=== PATIENT | male | born 1975 | race Caucasian/White ===

== ENCOUNTER 2021-10-13 00:04 | Day surgery (SDC) | payer MEDICARE, SELFPAY ==
[2021-10-06 09:48] VITALS: BMI 31.6
[2021-10-13 06:19] VITALS: BP 107/68; PULSE 128; RESP 18; TEMP 36.8; O2SAT 99
[2021-10-13] MEDS: LACTATED RINGERS 1,000 ML 150 ML IV CONT (06:21)
--- NOTE | 2021-10-13 06:49 | P.PNAN_ITS ---
Anes - Initial Pre Proc Eval Procedure: Operation Date: 10/13/21 07:30 Proposed Procedures p Screening Colonoscopy - Davie Mcgowan MD Date/Time: 10/13/21 06:49 Surgeon: Davie Mcgowan MD Pre Op Diagnosis: neoplasm screening Patient Data Age: 46 Gender: M Height: 1.68 m Weight: 96.9 kg Last Vital Signs Temp 36.8 C 10/13/21 06:19 Pulse 128 H 10/13/21 06:19 Resp 18 10/13/21 06:19 BP 107/68 10/13/21 06:19 Pulse Ox 99 10/13/21 06:19 Allergies Allergy/AdvReac Type Severity Reaction Status Date / Time No Known Allergies Allergy Verified 10/13/21 06:16 Home Medications Medication Instructions Recorded Confirmed Type lisinopril 10 mg tablet 10 mg PO DAILY #90 tablet 07/14/21 10/13/21 Rx rosuvastatin 20 mg tablet 20 mg PO DAILY #90 tablet 07/14/21 10/13/21 Rx sertraline 25 mg tablet 25 mg PO DAILY #30 tablet 10/01/21 10/13/21 Rx icosapent ethyl [Vascepa] 2,000 g PO BID 10/06/21 10/13/21 History Patient hx anesthesia problems: none Family hx anesthesia problems: none Results Review: All pre-operative results and documents have been reviewed as part of the pre-operative evaluation. [facility] Past Medical History Medical History (Updated 10/13/21 @ 06:55 by Zhao Trujillo DO) Essential (primary) hypertension Mixed hyperlipidemia Family History Family History Father Patient's father is Acute myocardial infarction Other Family history of cardiovascular disease Social History Social History Smoking status: Never smoker Second hand tobacco smoke exposure: Yes Alcohol intake: current Alcohol use details: once in a while Substance use: never Substance use type: does not use Living arrangements: with family Spiritual care concerns: No Anes - Eval Final PreProcedure Day of Procedure 10/13/21 06:49 Patient weight: obese Heart: regular rate and rhythm Lungs: clear to auscultation and normal air movement Airway: Mallampati scale class II Neurological: alert and oriented Last oral intake: >/= 8 hours ASA classification: III Emergent: no Anesthetic plan: proceed Anesthesia type and monitoring: general GIVS and standard monitoring Results Review: All pre-operative results and documents have been reviewed as part of the pre-operative evaluation. Informed Consent: The patient's anesthetic plan and its attendant risks and benefits were discussed with the patient/family/POA. Questions were solicited and answers provided to the satisfaction of the patient/family/POA.
--- NOTE | 2021-10-13 07:34 | PM.HPGS ---
History of Present Illness History of Present Illness Consent: Risks, benefits, and alternatives have been discussed and questions answered. Patient agrees to proceed with procedure. Chief complaint: neoplasm screening Narrative: Miguel Robledo Jr. is a 46 year old male here for first screening colonoscopy Review of Systems Constitutional: Constitutional: Denies headache(s) and Denies weakness Eyes: Eyes: Denies blurry vision ENT: Reports Normal hearing present, Denies headache(s) and Denies neck pain Cardiovascular: Cardiovascular: Denies chest pain and Denies dyspnea Respiratory: Respiratory: Denies dyspnea Gastrointestinal: Gastrointestinal: Reports no additional gastrointestinal complaints Genitourinary: Genitourinary: Denies dysuria Musculoskeletal: Musculoskeletal: Denies neck pain Integumentary/Breasts: Skin/Breast: Denies dry skin Neurologic: Reports Normal hearing present, Denies headache(s) and Denies weakness Psychiatric: Psychiatric: Denies anxiety Endocrine: Endocrine: Denies change in body appearance Hematologic/Lymphatic: Hematologic/Lymphatic: Denies easy bleeding Allergic/Immunologic: Allergic/Immunologic: Denies urticaria PMFSH Past Medical History Medical History (Updated 10/13/21 @ 06:55 by Zhao Trujillo DO) Essential (primary) hypertension Mixed hyperlipidemia Family History Family History Father Patient's father is Acute myocardial infarction Other Family history of cardiovascular disease Social History Social History Smoking status: Never smoker Second hand tobacco smoke exposure: Yes Alcohol intake: current Alcohol use details: once in a while Substance use: never Substance use type: does not use Living arrangements: with family Spiritual care concerns: No Meds Home Medications and Allergies Home Medications Medication Instructions Recorded Confirmed Type lisinopril 10 mg tablet 10 mg PO DAILY #90 tablet 07/14/21 10/13/21 Rx rosuvastatin 20 mg tablet 20 mg PO DAILY #90 tablet 07/14/21 10/13/21 Rx sertraline 25 mg tablet 25 mg PO DAILY #30 tablet 10/01/21 10/13/21 Rx icosapent ethyl [Vascepa] 2,000 g PO BID 10/06/21 10/13/21 History Allergies Allergy/AdvReac Type Severity Reaction Status Date / Time No Known Allergies Allergy Verified 10/13/21 06:16 Vital Signs Vital Signs - 24 hr 10/13/21 06:19 Temperature 98.3 F Pulse Rate 128 H Respiratory Rate 18 Blood Pressure 107/68 Pulse Oximetry 99 Exam Const: General: comfortable and no acute distress HENMT: General nose exam: Normal nares present Eyes: General: appearance normal, both eyes and all related structures Neck: Neck: no JVD Resp: Auscultation: clear to auscultation bilaterally Cardio: Rate: regular rate Rhythm: regular rhythm GI: Inspection: non-distended GI Palp: Yes Soft to palpation Skin: General skin exam: normal color Neuro: General: gait normal Speech: normal speech Extrem: General: normal to inspection Psych: Mental Status: mental status grossly normal Assessment and Plan Assessment and plan (1) Encounter for screening colonoscopy: Code(s): Z12.11 - Encounter for screening for malignant neoplasm of colon Status: Acute Assessment and Plan: colonoscopy
[2021-10-13 07:52] VITALS: BP 103/73; PULSE 98; RESP 22; O2SAT 95
[2021-10-13 08:02] VITALS: BP 103/67; PULSE 74; RESP 22; O2SAT 94
[2021-10-13 08:12] VITALS: BP 98/60; PULSE 58; RESP 18; O2SAT 97
== END 2021-10-13 08:28 | disposition home or self-care (01) ==
PROVIDERS: PCP Internal Medicine; Visit Provider Internal Medicine Gastroenterology
PROC: 0DJD8ZZ Inspection of Lower Intestinal Tract, Via Natural or Artificial Opening Endoscopic (ICD-10-PCS; CPT 45378; principal; 2021-10-13 07:30)
DX: Z12.11 Encounter for screening for malignant neoplasm of colon (principal); D12.0 Benign neoplasm of cecum; D12.3 Benign neoplasm of transverse colon; K57.30 Diverticulosis of large intestine without perforation or abscess without bleeding; K63.5 Polyp of colon; K64.8 Other hemorrhoids; I10 Essential (primary) hypertension; E78.2 Mixed hyperlipidemia; E66.9 Obesity, unspecified; Z68.34 Body mass index [BMI] 34.0-34.9, adult
CPT/HCPCS: 45380; 45385; 88305; J2704; J7120

== ENCOUNTER 2023-02-15 08:50 | Outpatient (CLI) | payer MEDICARE, SELFPAY ==
[2023-02-15 10:12] LABS: Hematocrit 41.3 % (42.0-52.0); Hemoglobin 13.7 g/dL (14.0-18.0); Mean Corpuscular HGB Conc 33.2 g/dl (32-36); Mean Corpuscular Hemoglobin 29.3 pg (26-34); Mean Corpuscular Volume 88.2 fl (80-100); Mean Platelet Volume 10.8 fl (7.4-10.4); Platelet Count Result 228 k/mm3 (150-375); Red Blood Count 4.68 M/mm3 (4.6-6.20); Red Cell Distribution Width 13.5 % (11.5-14.5); White Blood Count 8.7 K/mm3 (4.5-10.0)
[2023-02-15 10:27] LABS: Alanine Aminotransferase 77 U/L (6-50); Albumin Level 4.2 g/dL (3.5-5.1); Alkaline Phosphatase 69 U/L (38-126); Aspartate Amino Transferase 74 U/L (17-59); Bilirubin,Total 0.5 mg/dL (0.2-1.3)
== END 2023-02-15 08:51 | disposition home or self-care (01) ==
PROVIDERS: PCP Family Medicine; Visit Provider Family Medicine
DX: R73.01 Impaired fasting glucose (principal); R63.4 Abnormal weight loss; I10 Essential (primary) hypertension; E66.9 Obesity, unspecified; E55.9 Vitamin D deficiency, unspecified; E78.2 Mixed hyperlipidemia; Z12.11 Encounter for screening for malignant neoplasm of colon
CPT/HCPCS: 36415; 80076; 85027

== ENCOUNTER 2023-02-18 08:36 | Outpatient (CLI) | payer MEDICARE, SELFPAY ==
[2023-02-18 10:49] LABS: Hepatitis B Surface Antigen Negative (Negative)
[2023-02-18 10:55] LABS: HAV RESULT Negative (Negative); Hepatitis B Core IgM Result Negative (Negative)
[2023-02-18 11:07] LABS: Hepatitis C Virus Antibody Negative (Negative)
== END 2023-02-18 08:37 | disposition home or self-care (01) ==
PROVIDERS: PCP Family Medicine; Visit Provider Family Medicine
DX: R94.5 Abnormal results of liver function studies (principal)
CPT/HCPCS: 36415; 80074

== ENCOUNTER 2023-03-22 09:16 | Outpatient (CLI) | payer MEDICARE, SELFPAY ==
--- NOTE | ~2023-03-22 | US_ITS ---
Limited Abdominal Sonogram: Real-time sonographic imaging of the right upper quadrant was performed. Clinical History: Abnormal serum enzymes Findings: The liver appears echogenic, with no evidence of mass lesion or bile duct dilatation. Main portal vein demonstrates normal direction of flow. The gallbladder is well distended, and appears no rmal with no evidence of gallstone or wall thickening. The common bile duct measures 4 mm. The visua lized pancreas, aorta, and IVC are unremarkable. Impression: Diffuse fatty infiltration of the liver. Reviewed, dictated and finalized at location M. Impression: Diffuse fatty infiltration of the liver.
== END 2023-03-22 09:17 | disposition home or self-care (01) ==
PROVIDERS: PCP Family Medicine; Visit Provider Family Medicine
DX: R74.8 Abnormal levels of other serum enzymes (principal); K76.0 Fatty (change of) liver, not elsewhere classified
CPT/HCPCS: 76705

== ENCOUNTER 2023-08-17 14:27 | Outpatient (CLI) | payer MEDICARE, SELFPAY ==
[2023-08-17 14:52] LABS: Hematocrit 43.5 % (42.0-52.0); Hemoglobin 14.3 g/dL (14.0-18.0); Mean Corpuscular HGB Conc 32.9 g/dl (32-36); Mean Corpuscular Hemoglobin 29.1 pg (26-34); Mean Corpuscular Volume 88.6 fl (80-100); Mean Platelet Volume 10.4 fl (7.4-10.4); Platelet Count Result 253 k/mm3 (150-375); Red Blood Count 4.91 M/mm3 (4.6-6.20); Red Cell Distribution Width 14.2 % (11.5-14.5); White Blood Count 10.6 K/mm3 (4.5-10.0)
[2023-08-17 15:02] LABS: Alanine Aminotransferase 79 U/L (6-50); Albumin Level 4.8 g/dL (3.5-5.1); Alkaline Phosphatase 84 U/L (38-126); Anion Gap 9 mmol/L (8-16); Aspartate Amino Transferase 71 U/L (17-59); Bilirubin,Total 0.8 mg/dL (0.2-1.3); Blood Urea Nitrogen 17 mg/dL (9-20); Calcium 9.5 mg/dL (8.4-10.2); Carbon Dioxide 27 mmol/L (22-30); Chloride 105 mmol/L (98-107); Estimated Glomerular Filt Rate > 60; Glucose 94 mg/dL (65-110); Potassium 4.4 mmol/L (3.4-5.0); Sodium 141 mmol/L (137-145)
[2023-08-17 16:18] LABS: Vitamin D 25 Hydroxy 25.8 ng/mL
[2023-08-17 17:32] LABS: Hemoglobin A1C 5.6 % (<5.7)
== END 2023-08-17 14:28 | disposition home or self-care (01) ==
LOC: ANHLAB 14:33
PROVIDERS: PCP Family Medicine; Visit Provider Family Medicine
DX: D64.9 Anemia, unspecified (principal); R74.8 Abnormal levels of other serum enzymes; R73.01 Impaired fasting glucose; E66.9 Obesity, unspecified; E55.9 Vitamin D deficiency, unspecified; I10 Essential (primary) hypertension
CPT/HCPCS: 36415; 80053; 82306; 83036; 85027

== ENCOUNTER 2024-02-22 09:50 | Outpatient (CLI) | payer MEDICARE, SELFPAY ==
[2024-02-22 10:17] LABS: Hematocrit 41.5 % (42.0-52.0); Hemoglobin 13.7 g/dL (14.0-18.0); Mean Corpuscular Hemoglobin 29.5 pg (26-34); Mean Corpuscular Volume 89.4 fl (80-100); Mean Platelet Volume 10.4 fl (7.4-10.4); Platelet Count Result 234 k/mm3 (150-375); Red Blood Count 4.64 M/mm3 (4.6-6.20); Red Cell Distribution Width 13.7 % (11.5-14.5)
[2024-02-22 10:27] LABS: Alanine Aminotransferase 61 U/L (6-50); Albumin Level 4.7 g/dL (3.5-5.1); Alkaline Phosphatase 77 U/L (38-126); Anion Gap 8 mmol/L (4-12); Aspartate Amino Transferase 52 U/L (17-59); Bilirubin,Total 0.6 mg/dL (0.2-1.3); Blood Urea Nitrogen 15 mg/dL (9-20); Calcium 9.5 mg/dL (8.4-10.2); Carbon Dioxide 28 mmol/L (22-30); Chloride 107 mmol/L (98-107); Estimated Glomerular Filt Rate > 60; Glucose 99 mg/dL (65-110); Potassium 4.3 mmol/L (3.4-5.0); Sodium 143 mmol/L (137-145)
[2024-02-22 10:35] LABS: Hemoglobin A1C 5.4 % (<5.7)
[2024-02-22 10:47] LABS: Vitamin D 25 Hydroxy 99.5 ng/mL
== END 2024-02-22 09:51 | disposition home or self-care (01) ==
PROVIDERS: PCP Family Medicine; Visit Provider Family Medicine
DX: R73.01 Impaired fasting glucose (principal); R74.8 Abnormal levels of other serum enzymes; I10 Essential (primary) hypertension; F81.9 Developmental disorder of scholastic skills, unspecified; E55.9 Vitamin D deficiency, unspecified; D64.9 Anemia, unspecified; E78.2 Mixed hyperlipidemia
CPT/HCPCS: 36415; 80053; 82306; 83036; 85027

== ENCOUNTER 2024-08-23 09:30 | Outpatient (CLI) | payer MEDICARE, SELFPAY ==
[2024-08-23 10:05] LABS: Hematocrit 41.4 % (42.0-52.0); Hemoglobin 13.9 g/dL (14.0-18.0); Mean Corpuscular HGB Conc 33.6 g/dl (32-36); Mean Corpuscular Volume 89.4 fl (80-100); Mean Platelet Volume 10.4 fl (7.4-10.4); Platelet Count Result 230 k/mm3 (150-375); Red Blood Count 4.63 M/mm3 (4.6-6.20); Red Cell Distribution Width 13.8 % (11.5-14.5); White Blood Count 7.2 K/mm3 (4.5-10.0)
[2024-08-23 10:19] LABS: Alanine Aminotransferase 57 U/L (6-50); Albumin Level 4.4 g/dL (3.5-5.1); Alkaline Phosphatase 79 U/L (38-126); Anion Gap 3 mmol/L (4-12); Aspartate Amino Transferase 52 U/L (17-59); Bilirubin,Total 0.5 mg/dL (0.2-1.3); Blood Urea Nitrogen 14 mg/dL (9-20); Calcium 9.3 mg/dL (8.4-10.2); Carbon Dioxide 30 mmol/L (22-30); Chloride 107 mmol/L (98-107); Cholesterol 151 mg/dL (0-200); Estimated Glomerular Filt Rate > 60; Glucose 98 mg/dL (65-110); HDL Direct 35 mg/dL; Potassium 4.2 mmol/L (3.4-5.0); Sodium 140 mmol/L (137-145); Triglycerides 174 mg/dL (<150)
[2024-08-23 10:30] LABS: LDL Cholesterol Direct 73 mg/dL
[2024-08-23 10:48] LABS: Hemoglobin A1C 5.5 % (<5.7)
== END 2024-08-23 09:31 | disposition home or self-care (01) ==
LOC: ANHLAB 09:30
PROVIDERS: PCP Family Medicine; Visit Provider Family Medicine
DX: D64.9 Anemia, unspecified (principal); I10 Essential (primary) hypertension; E78.2 Mixed hyperlipidemia; E55.9 Vitamin D deficiency, unspecified; R73.01 Impaired fasting glucose; E66.9 Obesity, unspecified
CPT/HCPCS: 36415; 80053; 80061; 82306; 83036; 85027

== ENCOUNTER 2025-01-04 02:38 | Day surgery (SDC) | payer MEDICARE, SELFPAY ==
[2025-01-03 11:36] VITALS: BMI 25.2
--- NOTE | 2025-01-03 14:26 | P.PNAN_ITS ---
Anes - Initial Pre Proc Eval Procedure: Operation Date: 01/04/25 09:30 Proposed Procedures p Screening Colonoscopy - Davie Mcgowan MD <Zhao Trujillo, DO - Last Filed: 01/05/25 15:43> Date/Time: 01/03/25 14:26 <Zhao Trujillo DO - Last Filed: 01/05/25 15:43> Surgeon: Davie Mcgowan MD <Zhao Trujillo, DO - Last Filed: 01/05/25 15:43> Pre Op Diagnosis: Screening <Zhao Trujillo DO - Last Filed: 01/05/25 15:43> Patient Data Age: 50 Gender: M Height: 1.8 m Weight: 82 kg <Zhao Trujillo DO - Last Filed: 01/05/25 15:43> Allergies Allergy/AdvReac Type Severity Reaction Status Date / Time No Known Allergies Allergy Verified 01/04/25 08:03 <Zhao Trujillo DO - Last Filed: 01/05/25 15:43> Home Medications ?Medication ?Instructions ?Recorded ?Confirmed ?Type omega 9-fzu-hos-fish oil 1,000 mg 1 cap PO DAILY 08/06/22 01/04/25 History (120 mg-180 mg) capsule (Fish Oil) icosapent ethyl 1 gram capsule 2 g (2 x 1 gram) PO BID #120 caps 11/04/22 01/04/25 Rx tirzepatide (weight loss) 2.5 2.5 mg (0.5 mL) subcut WEEKLY #2 mL 08/23/24 01/03/25 Rx mg/0.5 mL subcutaneous pen injector (Zepbound) tirzepatide (weight loss) 5 mg/0.5 5 mg (0.5 mL) subcut WEEKLY #2 mL 09/15/24 01/03/25 Rx mL subcutaneous pen injector (Zepbound) lisinopril 10 mg tablet 10 mg PO DAILY #90 tabs 09/25/24 01/04/25 Rx rosuvastatin 20 mg tablet See Rx Instructions .Route 10/16/24 01/04/25 Rx .COMPLEX #90 tabs sertraline 25 mg tablet See Rx Instructions .Route 10/16/24 01/04/25 Rx .COMPLEX #90 tabs <Zhao Trujillo, DO - Last Filed: 01/05/25 15:43> Patient hx anesthesia problems: none <Magdaleno Ramirez, DO - Last Filed: 01/04/25 08:36> Family hx anesthesia problems: none <Magdaleno Ramirez, DO - Last Filed: 01/04/25 08:36> Results Review: All pre-operative results and documents have been reviewed as part of the pre-operative evaluation. <Zhao Trujillo, DO - Last Filed: 01/05/25 15:43> PMFSH Past Medical History Medical History: Medical History (Updated 01/04/25 @ 08:57 by Davie Mcgowan MD) Colon polyp Mentally disabled mild Anxiety Essential (primary) hypertension Mixed hyperlipidemia <Zhao Trujillo DO - Last Filed: 01/05/25 15:43> Family History Family History: Family History Father Patient's father is Acute myocardial infarction Other Family history of cardiovascular disease <Zhao Trujillo DO - Last Filed: 01/05/25 15:43> Social History Social History: Social History Smoking status: Never smoker Second hand tobacco smoke exposure: Yes Alcohol intake: current Alcohol use details: once in a while Substance use: never Substance use type: does not use Lack of Transportation: No Lack of Food: Never True Current Housing: I Have Housing Concerned About Future Housing: No Difficulty Paying Gas/Electric Bills: No Difficulty Paying for Meds: No Currently Unemployed: Decline to Answer Education: Decline to Answer Difficulty w/ Childcare or Family Care: Decline to Answer Living arrangements: with family Additional living arrangements comments: mild mental disability Spiritual care concerns: No <Zhao Trujillo DO - Last Filed: 01/05/25 15:43> Anes - Eval Final PreProcedure Day of Procedure 01/03/25 14:26 <Zhao Trujillo DO - Last Filed: 01/05/25 15:43> Patient weight: obese <Magdaleno CyndeeLyndsey Ramirez DO - Last Filed: 01/04/25 08:36> Lungs: normal air movement <Magdaleno CyndeeLyndsey Ramirez, DO - Last Filed: 01/04/25 08:36> Airway: Mallampati scale class III <Magdaleno CyndeeLyndsey Ramirez DO - Last Filed: 01/04/25 08:36> Neurological: alert and oriented <Magdaleno CyndeeLyndsey Ramirez, DO - Last Filed: 01/04/25 08 :36> Last oral intake: >/= 8 hours <Magdaleno Ramirez DO - Last Filed: 01/04/25 08:36> ASA classification: III <Magdaleno CyndeeLyndsey Ramirez, DO - Last Filed: 01/04/25 08:36> Emergent: no <Magdaleno Ramirez DO - Last Filed: 01/04/25 08:36> Anesthetic plan: proceed <Magdaleno CyndeeLyndsey Ramirez DO - Last Filed: 01/04/25 08:36> Anesthesia type and monitoring: general GIVS and standard monitoring <Magdaleno CyndeeLyndsey Ramirez DO - Last Filed: 01/04/25 08:36> Results Review: All pre-operative results and documents have been reviewed as part of the pre-operative evaluation. <Zhao Trujillo, DO - Last Filed: 01/05/25 15:43> All pre-operative results and documents have been reviewed as part of the pre-operative evaluation. HTN, hyperlipidemia, obesity. <Magdaleno CyndeeLyndsey Ramirez, DO - Last Filed: 01/04/25 08:36> Informed Consent: The patient's anesthetic plan and its attendant risks and benefits were discussed with the patient/family/POA. Questions were solicited and answers provided to the satisfaction of the patient/family/POA. <Zhao Trujillo, DO - Last Filed: 01/05/25 15:43>
--- OUTSIDE RECORDS SUMMARY | 2025-01-04 02:42 | XMS_ITS | Clinical Summary ---
Author Organization [facility] Address [facility] [place] [address] Care Team Providers Care Grommet Worker Name Role Phone None, Provider Primary Care Provider Unavaila ble Allergies No known active allergies Immunizations Immunization Administration Dates Next Due PFIZER COVID-19 (ORIGINAL FO RMULATION, PURPLE CAP) mRNA, LNP-S, PF, 30 MCG/0.3 ML DOSE 12/26/2020,12/04/2020 Tdap (Adacel) 09/21/2021 Social History Tobacco Use Types Packs/Day Years Used Date Smoking Tobacco: Never Assessed Sex and Gender Information Value Date Recorded Sex Assigned at Not on file Legal Sex Male 8:09 PM CDT Gender Identity Not on file Sexual Orientation Not on file Last Filed Vital Signs Vital Sign Reading Time Taken Comments Blood Pressure 138/80 09/21/2021 4:00 PM RN NEUROLOGY Pulse 89 09/21/2021 4:00 PM RN NEUROLOGY Temperature 36.8 C (98.3 F) 09/21/2021 4:00 PM RN NEUROLOGY Respiratory Rate 17 09/21/2021 4:00 PM RN NEUROLOGY Oxygen Saturation 98% 09/21/2021 4:00 PM RN NEUROLOGY Inhaled Oxygen Concentration - - Weight 102.1 kg (225 lb) 09/21/2021 4:00 PM RN NEUROLOGY Height 175.3 cm (5' 9 ) 09/21/2021 4:00 PM RN NEUROLOGY Body Mass Index 33.23 09/21/2021 4:00 PM RN NEUROLOGY Plan of Treatment Health Maintenance Due Date Last Done Comments Colorectal Cancer Screening Colonoscopy (10 Years) 1975 Annual Physical 1978 Hepatitis C 1993 Hepatitis B Vaccines (1 of 3 - 19+ 3-dose series) 1994 COVID-19 Vaccine (3 - 2023-2 5 season) 2024 12/26/2020, 12/04/2020 DTaP, Tdap and Td Vaccines ( 2 - Td or Tdap) 09/21/2031 09/21/2021 Meningococcal B Vaccine Aged Out No l onger eligible based on patient's age to complete this topic Meningococcal Vaccine Aged Out No lex niru eligible based on patient's age to complete this topic Pneumococcal Vaccine: Pediatrics (0 to 5 Years) and At-Risk Patients (6 to 49 Years) Aged Out No longer eligible b ased on patient's age to complete this topic RSV Immunizations Under 20 Months Aged Out No longer eligible b ased on patient's age to complete this topic Insurance Care Teams Grommet Worker Relationship Specialty Start Date End Date None, Provider, PCP - General 09/21/21
[2025-01-04 08:04] VITALS: BP 124/84; PULSE 75; RESP 18; TEMP 36.3; O2SAT 98; BMI 33.8
[2025-01-04] MEDS: LACTATED RINGERS 1,000 ML 150 ML IV CONT (08:10)
--- NOTE | 2025-01-04 08:56 | PM.HPGS ---
History of Present Illness History of Present Illness Consent: Risks, benefits, and alternatives have been discussed and questions answered. Patient agrees to proceed with procedure. Chief complaint: Screening Narrative: Miguel Robledo Jr. is a 50 year old male with colon polyp in 2021 Review of Systems Review of Systems: All systems reviewed & are unremarkable except as noted in HPI and below PMFSH Past Medical History Medical History (Updated 01/04/25 @ 08:57 by Davie Mcgowan MD) Colon polyp Mentally disabled mild Anxiety Essential (primary) hypertension Mixed hyperlipidemia Family History Family History Father Patient's father is Acute myocardial infarction Other Family history of cardiovascular disease Social History Social History Smoking status: Never smoker Second hand tobacco smoke exposure: Yes Alcohol intake: current Alcohol use details: once in a while Substance use: never Substance use type: does not use Lack of Transportation: No Lack of Food: Never True Current Housing: I Have Housing Concerned About Future Housing: No Difficulty Paying Gas/Electric Bills: No Difficulty Paying for Meds: No Currently Unemployed: Decline to Answer Education: Decline to Answer Difficulty w/ Childcare or Family Care: Decline to Answer Living arrangements: with family Additional living arrangements comments: mild mental disability Spiritual care concerns: No Meds Home Medications and Allergies Home Medications ?Medication ?Instructions ?Recorded ?Confirmed ?Type omega 4-woc-mkt-fish oil 1,000 mg 1 cap PO DAILY 08/06/22 01/04/25 History (120 mg-180 mg) capsule (Fish Oil) icosapent ethyl 1 gram capsule 2 g (2 x 1 gram) PO BID #120 caps 11/04/22 01/04/25 Rx tirzepatide (weight loss) 2.5 2.5 mg (0.5 mL) subcut WEEKLY #2 mL 08/23/24 01/03/25 Rx mg/0.5 mL subcutaneous pen injector (Zepbound) tirzepatide (weight loss) 5 mg/0.5 5 mg (0.5 mL) subcut WEEKLY #2 mL 09/15/24 01/03/25 Rx mL subcutaneous pen injector (Zepbound) lisinopril 10 mg tablet 10 mg PO DAILY #90 tabs 09/25/24 01/04/25 Rx rosuvastatin 20 mg tablet See Rx Instructions .Route 10/16/24 01/04/25 Rx .COMPLEX #90 tabs sertraline 25 mg tablet See Rx Instructions .Route 10/16/24 01/04/25 Rx .COMPLEX #90 tabs Allergies Allergy/AdvReac Type Severity Reaction Status Date / Time No Known Allergies Allergy Verified 01/04/25 08:03 Vital Signs Vital Signs - 24 hr 01/04/25 08:04 Temperature 97.4 F L Pulse Rate 75 Respiratory Rate 18 Blood Pressure 124/84 Pulse Oximetry 98 Oxygen Delivery Room Air Exam Const: General: comfortable and no acute distress HENMT: Face/Nose/Sinus: Normal nares present Eyes: General: appearance normal, both eyes and all related structures Neck: Neck: no JVD Resp: Auscultation: clear to auscultation bilaterally Cardio: Rate: regular rate Rhythm: regular rhythm GI: Inspection: non-distended GI Palp: Yes Soft to palpation Skin: General skin exam: normal color Neuro: General: gait normal Speech: normal speech Extrem: General: normal to inspection Psych: Mental Status: mental status grossly normal Assessment and Plan Assessment and plan (1) Colon polyp: Code(s): K63.5 - Polyp of colon Status: Acute Assessment and Plan: colonoscopy
[2025-01-04 09:12] VITALS: BP 104/66; PULSE 86; RESP 21; O2SAT 96
[2025-01-04 09:22] VITALS: BP 112/79; PULSE 75; RESP 24; O2SAT 97
== END 2025-01-04 09:39 | disposition home or self-care (01) ==
PROVIDERS: PCP Family Medicine; Referring Provider Internal Medicine Gastroenterology; Visit Provider Internal Medicine Gastroenterology
PROC: 0DJD8ZZ Inspection of Lower Intestinal Tract, Via Natural or Artificial Opening Endoscopic (ICD-10-PCS; CPT 45378; principal; 2025-01-04 09:30)
DX: Z12.11 Encounter for screening for malignant neoplasm of colon (principal); K62.1 Rectal polyp; K64.8 Other hemorrhoids; K57.30 Diverticulosis of large intestine without perforation or abscess without bleeding; I10 Essential (primary) hypertension; E78.2 Mixed hyperlipidemia; F41.9 Anxiety disorder, unspecified; E66.9 Obesity, unspecified; Z68.33 Body mass index [BMI] 33.0-33.9, adult; Z79.85 Long-term (current) use of injectable non-insulin antidiabetic drugs; Z82.49 Family history of ischemic heart disease and other diseases of the circulatory system
CPT/HCPCS: 45380; 88305; J2003; J2704; J7120

== ENCOUNTER 2025-02-22 08:45 | Outpatient (CLI) | payer MEDICARE, SELFPAY ==
--- OUTSIDE RECORDS SUMMARY | 2025-02-22 08:59 | XMS_ITS | Clinical Summary ---
Author Organization [facility] Address [facility] [place] [address] Care Team Providers Care Boilermaker Ship Name Role Phone None, Provider Primary Care [...] Comments Blood Pressure 138/80 09/21/2021 4:00 PM GARDEN MACHINERY MECHANIC Pulse 89 09/21/2021 4:00 PM GARDEN MACHINERY MECHANIC Temperature 36.8 C (98.3 F) 09/21/2021 4:00 PM GARDEN MACHINERY MECHANIC Respiratory Rate 17 09/21/2021 4:00 PM GARDEN MACHINERY MECHANIC Oxygen Saturation 98% 09/21/2021 4:00 PM GARDEN MACHINERY MECHANIC Inhaled Oxygen Concentration - - Weight 102.1 kg (225 lb) 09/21/2021 4:00 PM GARDEN MACHINERY MECHANIC Height 175.3 cm (5' 9) 09/21/2021 4:00 PM GARDEN MACHINERY MECHANIC Body Mass Index 33.23 09/21/2021 4:00 PM GARDEN MACHINERY MECHANIC Plan of Treatment Health Maintenance Due Date Last Done Comments Colorectal Cancer Screening Colonoscopy (10 Years) 1975 Annual Physical 1978 Hepatitis C 1993 Hepatitis B Vaccines (1 of 3 - 19+ 3-dose series) 1994 COVID-19 Vaccine (3 - 2023-2 5 season) 2024 12/26/2020, 12/04/2020 Pneumococcal Vaccine: 50+ Years (1 of 1 - PCV) 2025 Zoster Vaccines (1 of 2) 2025 DTaP, Tdap and Td Vaccines ( 2 [...] patient's age to complete this topic Insurance [address] [place] [id number] [facility] Care Teams Boilermaker Ship Relationship Specialty Start Date End Date None, Provider, PCP - General 09/21/21
[2025-02-22 09:24] LABS: Basophils Absolute Auto 0.1 K/mm3 (0.0-0.1); Basophils Percent Auto 0.7 % (0.2-1.2); Eosinophils Absolute Auto 0.3 K/mm3 (0-0.3); Eosinophils Percent Auto 3.7 % (0-4.4); Hematocrit 40.6 % (42.0-52.0); Hemoglobin 13.5 g/dL (14.0-18.0); Immature Granulocyte Absolute 0.03 K/mm3 (0.00-0.031); Immature Granulocyte Percent A 0.4 % (0-0.5); Lymphocytes Absolute Auto 2.52 K/mm3 (0.9-3.2); Lymphocytes Percent Auto 29.9 % (18.3-44.2); Mean Corpuscular HGB Conc 33.3 g/dl (32-36); Mean Corpuscular Hemoglobin 29.6 pg (26-34); Mean Platelet Volume 10.8 fl (7.4-10.4); Monocytes Absolute Auto 0.6 K/mm3 (0.1-0.6); Monocytes Percent Auto 6.6 % (2.6-8.5); Neutrophils Percent Auto 58.7 % (45.5-73.1); Platelet Count Result 221 k/mm3 (150-375); Red Blood Count 4.56 M/mm3 (4.6-6.20); Red Cell Distribution Width 13.3 % (11.5-14.5); White Blood Count 8.4 K/mm3 (4.5-10.0)
[2025-02-22 09:35] LABS: Iron 83 ug/dL (49-181)
[2025-02-22 09:36] LABS: Alanine Aminotransferase 45 U/L (6-50); Albumin Level 4.4 g/dL (3.5-5.1); Alkaline Phosphatase 77 U/L (38-126); Anion Gap 11 mmol/L (4-12); Aspartate Amino Transferase 47 U/L (17-59); Bilirubin,Total 0.4 mg/dL (0.2-1.3); Blood Urea Nitrogen 10 mg/dL (9-20); Calcium 9.2 mg/dL (8.4-10.2); Carbon Dioxide 24 mmol/L (22-30); Chloride 106 mmol/L (98-107); Estimated Glomerular Filt Rate > 60; Glucose 100 mg/dL (65-110); Sodium 141 mmol/L (137-145); Total Protein 7.7 g/dL (6.3-8.2)
[2025-02-22 09:45] LABS: Percent Iron Saturation 24 % (20-50)
[2025-02-24 23:29] LABS: Apolipoprotein B. 73 mg/dL
== END 2025-02-22 08:46 | disposition home or self-care (01) ==
PROVIDERS: PCP Family Medicine; Visit Provider Family Medicine
DX: E78.2 Mixed hyperlipidemia (principal); I10 Essential (primary) hypertension; R73.01 Impaired fasting glucose; R74.8 Abnormal levels of other serum enzymes
CPT/HCPCS: 36415; 80053; 82172; 82607; 82728; 83540; 83550; 85025